=== PATIENT | female | born 1995 | race African-American/Black ===

== ENCOUNTER 2018-06-14 07:41 | Outpatient (CLI) | payer OTHER ==
--- NOTE | 2018-06-13 09:04 | NUR ---
LEFT INSTRUCTIONS INCLUDING TIME, DATE AND CALL BACK NUMBER
[~2018-06-14] VITALS: Ht 167.6 cm; Wt 101.8 kg
[~2018-06-14 07:41] MED LIST: DECADRON0.5 MG PO; GLUCOPHAGE500 MG/TAB PO
[2018-06-14 07:51] VITALS: BP 140/72; PULSE 83
[2018-06-14 08:40] VITALS: BP 125/82; PULSE 63
[2018-06-14 08:45] VITALS: BP 125/82; PULSE 60
[2018-06-14 09:00] VITALS: BP 124/77; PULSE 62
[2018-06-14 09:15] VITALS: BP 123/84; PULSE 67
[2018-06-14 09:33] LABS: GLUCOSE,CSF 52 mg/dL (40-70); TOTAL PROTEIN,CSF 21 mg/dL (15-45)
[2018-06-14 10:02] LABS: CSF APPEARANCE CLEAR; CSF COLOR COLORLESS; CSF POLYMORPHONUCLEAR 0 % (0-6); CSF RBC 1 /mm3 (0-0)
[2018-06-14 10:03] LABS: CSF MONONUCLEAR 10 % (70-100)
== END 2018-06-14 09:40 | disposition home or self-care (01) ==
LOC: COL.RAD 07:41
PROVIDERS: Psychiatry & Neurology Neurology
DX: G93.2 Benign intracranial hypertension (principal)

== ENCOUNTER 2018-07-27 10:01 | Outpatient (CLI) | payer OTHER ==
[~2018-07-27] VITALS: Ht 167.6 cm; Wt 104.8 kg
[2018-07-27] MEDS ORDERED: PRENATAL PO (10:13)
[2018-07-27 10:20] VITALS: BP 129/72; PULSE 86
[2018-07-27 11:18] VITALS: BP 122/88; PULSE 91
--- NOTE | 2018-07-27 12:25 | NUR ---
Discharge instructions given. Transferred to private car by [email or web address]
== END 2018-07-27 12:26 | disposition home or self-care (01) ==
LOC: COL.RAD 10:01
DX: H47.10 Unspecified papilledema (principal); G93.2 Benign intracranial hypertension